=== PATIENT | female | born 1965 | race Caucasian/White ===

== ENCOUNTER 2017-05-24 21:48 | Emergency (ER) | payer OTHER ==
[~2017-05-24] VITALS: Ht 162.6 cm; Wt 64.6 kg
[~2017-05-24 21:48] MED LIST: DAILY VALUE1 EACH PO; ENDOCET 5-3251 EACH PO; IBUPROFEN800 MG PO; KELNOR 1-351 EACH PO; VITAMIN C1000 MG PO
[2017-05-24 23:14] LABS: HEMATOCRIT 37.7 % (36.0-46.0); MCHC 33.7 G/DL (30.0-36.0); MCV 88.9 FL (83-99); MEAN PLAT.VOLUME 10.1 uM^3 (9.5-12.4); PLATELET COUNT 199 K/uL (156-360); RBC DIS.WIDTH-CV 12.9 % (11.8-14.6); RBC DIS.WIDTH-SD 42.4 % (39-53); RED BLOOD COUNT 4.24 M/uL (3.80-5.20)
[2017-05-24 23:30] LABS: CHLORIDE 105 mEq/L (99-109); POTASSIUM 3.8 mEq/L (3.7-5.4); SODIUM 139 mEq/L (136-147)
[2017-05-24 23:33] LABS: GLUCOSE 99 mg/dL (70-99)
[2017-05-24 23:34] LABS: ANION GAP 8 MEQ/L (2-14); TOTAL BILIRUBIN 0.5 mg/dL (0.0-1.0)
[2017-05-24 23:36] LABS: ALKALINE PHOSPHATASE 83 IU/L (3-129); GFR ESTIMATE (CALCULATED) > 59 mL/min/
[2017-05-24 23:37] LABS: UREA NITROGEN (BUN) 11 mg/dL (9-23)
[2017-05-24 23:40] LABS: LIPASE 47 U/L (1.0-51.0)
[2017-05-25 00:05] LABS: ADD MIUA? NO; BILIRUBIN NEGATIVE; BLOOD NEGATIVE; COLOR STRAW ((YELLOW)); GLUCOSE (STRIP) NEGATIVE; KETONES NEGATIVE; LEUKOCYTES NEGATIVE; NITRITE NEGATIVE; PROTEIN (STRIP) NEGATIVE; SPECIFIC GRAVITY 1.006 (1.000-1.030); UCUL ADDED? NO; UROBILINOGEN 0.2 MG/DL (0.2-1.0)
[2017-05-25 01:04] VITALS: BP 144/82
== END 2017-05-25 01:05 | disposition home or self-care (01) ==
LOC: EME 21:48
DX: R10.31 Right lower quadrant pain (principal); R11.0 Nausea; M54.9 Dorsalgia, unspecified; Z90.710 Acquired absence of both cervix and uterus
CPT/HCPCS: 74177; 80053; 81003; 83690; 85027; 99281; 99285; J1885; J7030